=== PATIENT | female | born 1985 | race Two or more races ===

== ENCOUNTER 2021-02-13 23:55 | Emergency (ER) | payer OTHER ==
[~2021-02-13] VITALS: Ht 165.1 cm; Wt 106.1 kg
== END 2021-02-14 | disposition home or self-care (01) ==
LOC: ER 23:55
DX: O20.0 Threatened abortion (principal)

== ENCOUNTER 2021-06-10 09:26 | Outpatient (CLI) | payer OTHER | END 2021-06-10 10:57 | disposition home or self-care (01) | LOC: NST 09:26 | PROVIDERS: ATTEND Obstetrics & Gynecology Maternal & Fetal Medicine | DX: Z34.82 Encounter for supervision of other normal pregnancy, second trimester (principal) ==

== ENCOUNTER 2021-06-22 15:32 | Inpatient (IN) | payer OTHER ==
[~2021-06-22] VITALS: Ht 165.1 cm; Wt 112.9 kg
[2021-06-22] MEDS ORDERED: PRENATAL CAPLE1 EAC1 PO (19:25)
== END 2021-06-25 18:14 | disposition home or self-care (01) | DRG 819 ==
LOC: LDR 15:32 → OB/GYN 06-24 14:27
PROVIDERS: ADMIT Obstetrics & Gynecology Maternal & Fetal Medicine; ATTEND Obstetrics & Gynecology Maternal & Fetal Medicine
PROC: 4A1HXFZ Monitoring of Products of Conception, Cardiac Rhythm, External Approach (ICD-10-PCS; 2021-06-23)
PROC: 0UVC7ZZ Restriction of Cervix, Via Natural or Artificial Opening (ICD-10-PCS; principal; 2021-06-23 21:15)
PROC: BU46ZZZ Ultrasonography of Uterus (ICD-10-PCS; 2021-06-25)
DX: O34.33 Maternal care for cervical incompetence, third trimester (principal); O30.003 Twin pregnancy, unspecified number of placenta and unspecified number of amniotic sacs, third trimester; Z3A.28 28 weeks gestation of pregnancy

== ENCOUNTER 2021-07-02 20:32 | Emergency (ER) | payer OTHER ==
[~2021-07-02] VITALS: Ht 165.1 cm; Wt 112.0 kg
[~2021-07-02 20:32] MED LIST: PRENATAL CAPLE1 EAC1 PO
[2021-07-02] MEDS ORDERED: NIFEDIPINE20 MG PO (21:02)
== END 2021-07-02 23:48 | disposition home or self-care (01) ==
LOC: ER 20:32
DX: N75.1 Abscess of Bartholin's gland (principal); O26.899 Other specified pregnancy related conditions, unspecified trimester; Z3A.00 Weeks of gestation of pregnancy not specified

== ENCOUNTER 2021-07-20 12:43 | Outpatient (CLI) | payer OTHER ==
[~2021-07-20 12:43] MED LIST changes: +NIFEDIPINE20 MG PO
== END 2021-07-20 13:03 | disposition home or self-care (01) ==
LOC: NST 12:43
PROVIDERS: ATTEND Obstetrics & Gynecology Maternal & Fetal Medicine
DX: Z34.83 Encounter for supervision of other normal pregnancy, third trimester (principal)

== ENCOUNTER 2021-07-27 10:41 | Outpatient (CLI) | payer OTHER | END 2021-07-27 11:51 | disposition home or self-care (01) | LOC: NST 10:41 | PROVIDERS: ATTEND Obstetrics & Gynecology Maternal & Fetal Medicine | DX: Z34.83 Encounter for supervision of other normal pregnancy, third trimester (principal) ==

== ENCOUNTER 2021-07-30 22:47 | Inpatient (IN) | payer OTHER ==
[~2021-07-30] VITALS: Ht 165.1 cm; Wt 112.9 kg
[2021-07-30] MEDS ORDERED: CHILDREN'S ASPI81 MG PO (22:56)
[2021-07-30] MEDS ORDERED: NIFEDIPINE20 MG PO (22:56)
== END 2021-07-31 12:20 | disposition home or self-care (01) | DRG 833 ==
LOC: OBS/DEL 22:47 → LDR 07-31 01:23
PROVIDERS: ADMIT Obstetrics & Gynecology; ATTEND Obstetrics & Gynecology
PROC: 4A1HXFZ Monitoring of Products of Conception, Cardiac Rhythm, External Approach (ICD-10-PCS; principal; 2021-07-31)
DX: O34.33 Maternal care for cervical incompetence, third trimester (principal); O30.003 Twin pregnancy, unspecified number of placenta and unspecified number of amniotic sacs, third trimester; Z3A.33 33 weeks gestation of pregnancy; Z20.822 Contact with and (suspected) exposure to COVID-19

== ENCOUNTER 2021-08-03 12:55 | Outpatient (CLI) | payer OTHER ==
[~2021-08-03 12:55] MED LIST changes: +CHILDREN'S ASPI81 MG PO
== END 2021-08-03 13:36 | disposition home or self-care (01) ==
LOC: NST 12:55
PROVIDERS: ATTEND Obstetrics & Gynecology Maternal & Fetal Medicine
DX: Z34.83 Encounter for supervision of other normal pregnancy, third trimester (principal)

== ENCOUNTER → 2021-08-04 | Outpatient (CLI) | payer OTHER | END | disposition home or self-care (01) | LOC: OBS/DEL 18:42 | PROVIDERS: ATTEND Obstetrics & Gynecology | DX: O60.03 Preterm labor without delivery, third trimester (principal); Z3A.34 34 weeks gestation of pregnancy ==

== ENCOUNTER 2021-08-11 09:40 | Outpatient (CLI) | payer OTHER | END 2021-08-11 09:55 | disposition home or self-care (01) | LOC: NST 09:40 | PROVIDERS: ATTEND Obstetrics & Gynecology | DX: O30.003 Twin pregnancy, unspecified number of placenta and unspecified number of amniotic sacs, third trimester (principal) ==

== ENCOUNTER 2021-08-19 08:15 | Inpatient (IN) | payer OTHER ==
[~2021-08-19] VITALS: Ht 165.1 cm; Wt 1.8 kg
== END 2021-08-27 14:11 | disposition home or self-care (01) | DRG 786 ==
LOC: LDR 08-24 05:47 → OB/GYN 08-24 20:14
PROVIDERS: ADMIT Obstetrics & Gynecology Maternal & Fetal Medicine; ATTEND Obstetrics & Gynecology Maternal & Fetal Medicine
PROC: 4A1HXFZ Monitoring of Products of Conception, Cardiac Rhythm, External Approach (ICD-10-PCS; 2021-08-24)
PROC: 10D00Z1 Extraction of Products of Conception, Low, Open Approach (ICD-10-PCS; principal; 2021-08-24 18:45)
DX: O62.1 Secondary uterine inertia (principal); O34.33 Maternal care for cervical incompetence, third trimester; O65.5 Obstructed labor due to abnormality of maternal pelvic organs; O30.043 Twin pregnancy, dichorionic/diamniotic, third trimester; O99.824 Streptococcus B carrier state complicating childbirth; O24.420 Gestational diabetes mellitus in childbirth, diet controlled; Z3A.37 37 weeks gestation of pregnancy; Z37.2 Twins, both liveborn